=== PATIENT | male | born 1980 | race Two or more races ===

== ENCOUNTER → 2016-08-24 | Outpatient (REF) | payer OTHER | LOC: M SMT 10:00 | PROVIDERS: ATTEND Urology | DX: Z30.2 Encounter for sterilization (principal) ==

== ENCOUNTER → 2016-10-18 | Outpatient (REF) | payer OTHER ==
[2016-10-18 09:58] LABS: IMMMOTILE SPERM CENTRIFUGED ABSENT (ABSENT); IMMOTILE SPERM ABSENT (ABSENT); MOTILE SPERM ABSENT (ABSENT); MOTILE SPERM CENTRIFUGED ABSENT (ABSENT)
== END ==
LOC: M SMT 09:37
PROVIDERS: ATTEND Urology
DX: Z30.2 Encounter for sterilization (principal)